=== PATIENT | female | born 1990 | race African-American/Black ===

== ENCOUNTER 2020-03-05 12:03 | Emergency (ER) | payer MEDICAID ==
[~2020-03-05] VITALS: Ht 157.5 cm; Wt 59.0 kg
[2020-03-05 12:07] VITALS: BP 113/64
== END 2020-03-05 12:48 | disposition home or self-care (01) ==
LOC: ER 12:03
DX: K64.4 Residual hemorrhoidal skin tags (principal)
CPT/HCPCS: 99281; 99282